=== PATIENT | female | born 1980 | race Caucasian/White ===

== ENCOUNTER 2023-06-14 11:26 | Emergency (ER) | payer MEDICAID ==
[~2023-06-14] VITALS: Ht 167.6 cm; Wt 63.6 kg
[2023-06-14 11:36] VITALS: TEMP 98.3
[2023-06-14 15:55] VITALS: BP 111/69; PULSE 89; RESP 16
== END 2023-06-14 15:57 | disposition home or self-care (01) ==
LOC: EMS 11:32
DX: S06.0X0A Concussion without loss of consciousness, initial encounter (principal); X58.XXXA Exposure to other specified factors, initial encounter; Y93.01 Activity, walking, marching and hiking; Y92.89 Other specified places as the place of occurrence of the external cause; Y99.8 Other external cause status
CPT/HCPCS: 99282; Z7502